=== PATIENT | female | born 1950 | race Caucasian/White ===

== ENCOUNTER 2016-09-09 10:44 | Inpatient (IN) | payer OTHER ==
[2016-08-23 09:58] VITALS: BMI 56.0
--- NOTE | 2016-08-23 10:29 | PAT Medication Instructions ---
Service Date Aug 23, 2016. Current Home Medication List Acetaminophen Tab (Tylenol), 650 MG PO QAM Cholecalciferol (Vitamin D3), 1 TAB PO QPM Meloxicam (Mobic), 7.5 MG PO QAM Warfarin Sod (Jantoven), 5-7.7 MG PO QPM [Folic Acid ], 800 MCG PO QPM Medication Instructions For Your Scheduled Surgery - Instructions per coumadin clinic: Warfarin Sod (Jantoven), 5-7.7 MG PO QPM *to bridge with Lovenox* - Hold the following medications 5 days prior to surgery per surgeon's instructions: Meloxicam (Mobic), 7.5 MG PO QAM Cholecalciferol (Vitamin D3), 1 TAB PO QPM [Folic Acid ], 800 MCG PO QPM - Take the following medications the morning of surgery with a sip of water OTHERWISE NOTHING TO EAT OR DRINK AFTER MIDNIGHT: Acetaminophen Tab (Tylenol), 650 MG PO QAM (MAY TAKE IF NEEDED UP TO 4 HOURS PRIOR TO SURGERY) If you have any questions please call us at [phone] or [phone] or [phone]
[2016-08-23 10:39] LABS: URINE APPEARANCE CLEAR (CLEAR); URINE BILIRUBIN NEG (NEG); URINE COLOR YELLOW; URINE NITRITE NEG (NEG); UROBILINOGEN NEG (NEG)
[2016-08-23 10:41] LABS: MANUAL MICROSCOPIC REQUIRED? NO; REVIEW REQ? NO
--- NOTE | 2016-08-23 11:06 | DIAGNOSTIC IMAGING REPORT ---
CHEST PREADMISSION(PA/LAT) CLINICAL HISTORY: Preoperative chest COMPARISON STUDY: No previous studies for comparison. FINDINGS: The cardiac and mediastinal contours are normal. There is no evidence of focal pulmonary consolidation. There is no evidence of failure. No pleural effusions are visualized.[ There is calcified left lower lobe granuloma. IMPRESSION: No active disease in the chest. Electronically signed by: Faustino Robins M.D. 08/23/2016 11:04 AM Dictated Date/Time: 08/23/2016 11:03 AM
[2016-08-23 11:12] LABS: BASO % 0.8 %; BASO ABS # 0.05 K/uL (0-0.2); COMPLETE YES; EOS % 1.7 %; HEMATOCRIT 40.9 % (37-47); IG% 0.2 %; LYMPH % 36.7 %; LYMPH ABS # 2.43 K/uL (1.2-3.4); MEAN CELL VOLUME 88.9 fL (80-100); MEAN CORPUSCULAR HEMOGLOBIN 29.6 pg (25-34); MEAN CORPUSCULAR HGB CONC 33.3 g/dl (32-36); MEAN PLATELET VOLUME 10.2 fL (7.4-10.4); MONO % 3.8 %; NEUT % 56.8 %; PLATELET COUNT 248 K/uL (130-400); WHITE BLOOD COUNT 6.62 K/uL (4.8-10.8)
[2016-08-23 11:24] LABS: INR 1.5 (0.9-1.1); PARTIAL THROMBOPLASTIN RATIO 1.3; PROTHROMBIN TIME (PATIENT) 16.7 SECONDS (9.0-12.0)
[2016-08-23 13:20] LABS: CALCIUM 8.9 mg/dl (8.5-10.1); CREATININE 0.69 mg/dl (0.60-1.20); POTASSIUM 4.3 mmol/L (3.5-5.1)
--- NOTE | 2016-09-08 12:41 | HISTORY & PHYSICAL EXAMINATION ---
DATE OF ADMISSION: 09/09/2016 CHIEF COMPLAINT: Primary osteoarthritis of the right hip. HISTORY OF PRESENT ILLNESS: Edna is a pleasant 66-year-old female who has been dealing with chronic right groin pain. X-rays and clinical examination have been diagnostic for primary osteoarthritis of the right hip. After failing extensive conservative treatment, she has elected to proceed with a right total hip arthroplasty. She does have a BMI of 56, she understands her size and the increased complication rate with the procedure and still would like to proceed. PAST MEDICAL HISTORY: Significant for blood clots and melanoma on her nose. PAST SURGICAL HISTORY: None. ALLERGIES: None. MEDICATIONS: Include vitamin D3 1000 units daily, Mobic 7.5 mg for pain and Coumadin 5-7.5 mg at night for history of blood clots. FAMILY HISTORY: Noncontributory. SOCIAL HISTORY: She is . Rarely drinks. Denies use of tobacco or IV drug use. She has little activity and has 2 kids. REVIEW OF SYSTEMS: She complains of right hip pain. All other pertinent review of systems is negative. PHYSICAL EXAMINATION: GENERAL: She is awake, alert and oriented x3. She is in no apparent distress. She is very pleasant. HEENT: Pupils are equal, round and reactive to light. Extraocular motions intact. Oral mucosa is pink and moist. HEART: Regular rate per radial pulse. LUNGS: Ginger symmetrically bilaterally with no audible breath sounds. ABDOMEN: Soft, nontender, nondistended. MUSCULOSKELETAL: On physical examination of the right hip, she ambulates with a slight limp. She does have reproducible groin pain with internal and external rotation of her hip. No tenderness to palpation over the greater trochanteric bursa. No back pain. She is neurovascularly intact. IMAGING: X-rays of the hip do show advanced osteoarthritis of the right hip joint. IMPRESSION: Primary osteoarthritis of the right hip. PLAN: Will proceed with a Biomet taper lock right total hip arthroplasty. Postoperatively, she will be discharged to general orthopedic floors and kept 2 midnights for postoperative medical management. She will be started back on Coumadin for DVT prophylaxis and she will likely go to a rehab because she lives alone.
[2016-09-09] VITALS (7 sets, daily range): BP systolic 100–141; BP diastolic 64–80; PULSE 74–84; TEMP 36.3–36.9; O2SAT 94–100; Ht 162.6 cm; Wt 148.0 kg
[~2016-09-09] VITALS: Ht 162.6 cm; Wt 148.0 kg
[~2016-09-09 10:44] MED LIST: ACET325T96 PO; ACETAMINOPHEN 500 MG TAB PO SCH; BUPIVACAINE 0.5 % 5 MG/1 ML PF 10ML VIAL ONE; CEFAZOLIN 3000 MG/65 ML D5W 65 ML IV SCH; CHOL1000 PO; FAMOTIDINE 20 MG TAB PO SCH; FOLIC ACID PO; LACTATED RINGER'S 1000ML 1,000 ML IV SCH; LACTATED RINGER'S 1000ML IV SCH; LACTATED RINGER'S 500 ML IV SCH; MELO7.5T5 PO; ROPIVACAINE 5MG/ML 30 ML 150 MG, BUPIVACAINE/EPINEPHR 0.5% MPF 30 ML, KETOROLAC TROMETH... INFIL SCH; WARF5TAB7 PO
[2016-09-09] MEDS ORDERED: MIDAZOLAM HCL 1 MG/ML 2ML VIAL ONE (11:28)
[2016-09-09] MEDS ORDERED: FENTANYL CITRATE INJ 50 MCG/1 ML 2 ML VIAL ONE (11:28)
[2016-09-09] MEDS ORDERED: ENOX120I SQ (11:45)
[2016-09-09] MEDS ORDERED: LACTATED RINGER'S 1000ML 1,000 ML IV PRN (12:41)
[2016-09-09] MEDS ORDERED: FENTANYL CITRATE INJ 50 MCG/1 ML 2 ML VIAL IV PRN (12:45)
[2016-09-09] MEDS ORDERED: ONDANSETRON INJ 2 MG/ML 2 ML VIAL IV PRN ×2 (12:45→16:00)
--- NOTE | 2016-09-09 12:58 | History & Physical Bridge Note ---
H&P Re-Evaluation Bridge Note: I have examined the patient, reviewed the History & Physical and in the interval since the performance of the History & Physical I have noted the following changes of clinical significance: No changes noted
[2016-09-09] MEDS ORDERED: BACITRACIN 50000 UNIT VIAL ONE (13:20)
[2016-09-09] MEDS ORDERED: ORTHO JOINT ANESTHETIC ONE (13:20)
[2016-09-09] MEDS ORDERED: PROPOFOL IV EMULSION 10 MG/ML 20 ML VIAL IV ONE (13:43)
[2016-09-09] MEDS ORDERED: PHENYLEPHRINE 100MCG/ML 5ML SYR ONE (13:52)
[2016-09-09] MEDS ORDERED: EpHEDrine SULFATE 50MG/5ML SYR ONE (13:52)
--- NOTE | 2016-09-09 15:04 | DIAGNOSTIC IMAGING REPORT ---
RIGHT HIP UNILATERAL 1 VIEW CLINICAL HISTORY: RT XTL IN OR Right hip replacement COMPARISON: None. DISCUSSION: Single image intensifier images of the right hip was obtained intraoperatively. This images used for intraoperative surgical assistance. IMPRESSION: Right hip replacement Electronically signed by: James Borden M.D. 09/09/2016 3:02 PM Dictated Date/Time: 09/09/2016 3:01 PM
--- NOTE | 2016-09-09 15:52 | [facility] Post Operative Brief Note ---
Immediate Operative Summary Operative Date September 09, 2016. Pre-Operative Diagnosis Primary osteoarthritis of the right hip Post-Operative Diagnosis Primary osteoarthritis of the right hip Procedure(s) Performed Right total hip arthroplasty Surgeon Dr. Papa Fernando Slubber Hand Surgeon(s) Rodney Zazueta PA-C Estimated Blood Loss 350ML Findings as above Specimens A. Right Femoral Head Complication(s) None Disposition Recovery Room / PACU
[2016-09-09] MEDS ORDERED: SILVER SULFADIAZINE 1% CR 50 GM JAR EXT PRN (16:00)
[2016-09-09] MEDS ORDERED: BISACODYL 10 MG SUPP PR PRN (16:00)
[2016-09-09] MEDS ORDERED: METOCLOPRAMIDE HCL INJ 5 MG/ML 2 ML VIAL IV PRN (16:00)
[2016-09-09] MEDS ORDERED: SOD PHOSPHATE/SOD BIPHOSPHATE ENEMA 132 ML BTL PR PRN (16:00)
[2016-09-09] MEDS ORDERED: MAGNESIUM HYDROXIDE SUSP 30 ML UDC PO PRN (16:00)
[2016-09-09] MEDS ORDERED: MoRPHine SULFATE 2 MG/ML CARP IV PRN (16:00)
--- NOTE | 2016-09-09 16:17 | DIAGNOSTIC IMAGING REPORT ---
RIGHT PELVIS/UNILATERAL HIP 1 VIEW CLINICAL HISTORY: Postoperative evaluation. COMPARISON: Pelvis and right hip radiographs August 09, 2016. FINDINGS: Alignment of the total right hip arthroplasty is anatomic. There is no fracture or unexpected radiopaque foreign body. Acetabular screw is in place. There is a surgical drain. IMPRESSION: Expected findings following total right hip arthroplasty. Electronically signed by: Zi Magaña M.D. 09/09/2016 4:16 PM Dictated Date/Time: 09/09/2016 4:14 PM
--- NOTE | 2016-09-09 16:34 | Anesthesiology Progress Note ---
Anesthesia Post Op Note Date & Time September 09, 2016 at 16:34 Vital Signs Pain Intensity: 0 Vital Signs Past 12 Hours Date Time Temp Pulse Resp B/P Pulse Ox O2 Delivery O2 Flow Rate FiO2 09/09/16 16:30 72 12 126/68 98 Nasal Cannula 2 09/09/16 16:20 70 12 127/75 99 Nasal Cannula 2 09/09/16 16:10 67 19 119/72 100 Nasal Cannula 2 09/09/16 16:00 68 16 139/68 99 Nasal Cannula 2 09/09/16 15:50 36.1 73 20 122/77 97 Nasal Cannula 2 09/09/16 11:14 36.5 74 20 141/75 97 Room Air Notes Mental Status: alert / awake / arousable, participated in evaluation Pt Amnestic to Procedure: Yes Nausea / Vomiting: adequately controlled Pain: adequately controlled Airway Patency, RR, SpO2: stable & adequate BP & HR: stable & adequate Hydration State: stable & adequate Neuraxial Anesthesia: was administered, sensory block is resolving Anesthetic Complications: no major complications apparent
--- NOTE | 2016-09-09 18:18 | OPERATIVE REPORT ---
DATE OF OPERATION: 09/09/2016 PREOPERATIVE DIAGNOSIS: Primary osteoarthritis of the right hip with morbid obesity and a BMI 56. POSTOPERATIVE DIAGNOSIS: Same. PROCEDURE: Right total hip arthroplasty. SURGEON: Papa Fernando DO TIER LIFT OPERATOR: Loco Zazueta PA-C, whose assistance was necessary for retraction and helping dislocate the hip. ANESTHESIA: Spinal with sedation. COMPLICATIONS: None. CONDITION: Stable to PACU. IMPLANTS USED: I used a Biomet Taperloc total hip arthroplasty with a size 50-mm G7 cup and a single 30-mm screw, a neutral highly cross-linked liner, a size 11 press-fit standard Taperloc stem and a 36-mm standard ceramic femoral head. No cement was used during the case. This case was increased difficulty and took greater than 50% increase in time due to the patient's size. She has a BMI of 56 and most of her weight is located at the area of her hips. It took special retractors for exposure and a larger incision and dissection time than usual. INDICATIONS: Edna is a pleasant 66-year-old female who presented to my office with chronic right hip pain. X-rays and clinical examination were diagnostic for primary osteoarthritis of the right hip. After failing extensive conservative treatment, she elected to undergo a right total hip arthroplasty. OPERATION AND FINDINGS: On 09/09/2014, she arrived at [facility] for the above procedure. She was seen in the preoperative holding area and the operative extremity was identified and signed. She was given a preoperative antibiotic and taken back to the operating room, laid on the table in supine position and given basic sedation. She was then put in the lateral decubitus position. The right hip was then prepped and draped in sterile fashion. Time-out was done and the patient and operative extremity was properly identified. An anterolateral approach was used. Dissection was taken down through the fat layer to the tensor. The tensor was incised. The abductors were exposed and the anterior third of the abductors were tenotomized off the greater trochanter. The capsule was then excised and the hip was dislocated. The femoral neck was then resected and the femoral head was removed. The acetabulum was then exposed. Time was spent doing a complete circumferential capsular and labral release. Sequential reaming of the acetabulum up to a size 49 reamer was done. A 50-mm G7 cup was then impacted into place and a 30-mm screw was placed. The highly cross-linked was then snapped into place. The proximal femur was then exposed. Sequential broaching up to a size 11 broach was done. A standard head and neck assembly was applied. The hip was reduced, brought through a full range of motion and felt to be stable. A single flat plate x-ray was then taken and I was happy with the size and alignment of the components. The hip was then dislocated and the final size 11 stem was impacted into place, and the 36-mm ceramic head was impacted on the stem. The hip was reduced, brought through a full range of motion and felt to be stable. The hip was then irrigated, surrounding soft tissues were then injected with 100 mL of an orthopedic pain control cocktail. The abductors were then tenodesed back to the greater trochanter with transosseous FiberWire sutures and [id number] sutures. Two drains were placed, one in the deep layer and one superficial to the IT band. The IT band was closed with #1 Vicryl suture. Deep fat layer sutures were placed and the skin was closed with 2-0 Vicryl and sanket. She was placed in a soft dressing and taken to the postanesthesia care unit in stable condition. She tolerated the procedure well. I attest to the content of the Intraoperative Record and any orders documented therein. Any exceptio ns are noted below.
[2016-09-09] MEDS: SODIUM CHLORIDE 0.9% 1000ML 1,000 ML IV SCH (19:06)
[2016-09-09] MEDS: KETOROLAC TROMETHAMINE 30 MG/ML VIAL IV. SCH (19:06)
[2016-09-09 21:26] LABS: PROTHROMBIN TIME (PATIENT) 10.7 SECONDS (9.0-12.0)
[2016-09-09] MEDS: CEFAZOLIN IV 3,000 MG in DEXTROSE 5% 50ML 50 ML IV SCH (21:34)
[2016-09-09] MEDS: CHOLECALCIFEROL 1000 INTER.UNIT TAB PO SCH (21:35)
[2016-09-09] MEDS: SENNA 8.6 MG TAB PO SCH (21:35)
[2016-09-09] MEDS: FoLIC ACID TAB 400 MCG TAB PO SCH (21:35)
[2016-09-09] MEDS: DOCUSATE SODIUM 100 MG CAP PO SCH (21:35)
[2016-09-09] MEDS: ACETAMINOPHEN IV 1,000 MG in EMPTY BAG 0 ML IV SCH (21:36)
[2016-09-09] MEDS ORDERED: WARFARIN SOD 5 MG TAB PO SCH (22:00)
[2016-09-10] MEDS: KETOROLAC TROMETHAMINE 30 MG/ML VIAL IV. SCH ×5 (00:33→23:56)
[2016-09-10] MEDS: CEFAZOLIN IV 3,000 MG in DEXTROSE 5% 50ML 50 ML IV SCH (03:48)
[2016-09-10] MEDS: SODIUM CHLORIDE 0.9% 1000ML 1,000 ML IV SCH ×2 (03:48→11:53)
[2016-09-10 03:58] VITALS: BP 135/75; PULSE 73; TEMP 36.8; O2SAT 95
[2016-09-10] MEDS: ENOXAPARIN 30 MG/0.3 ML SYR SQ SCH ×2 (06:39→18:48)
[2016-09-10] MEDS: ACETAMINOPHEN IV 1,000 MG in EMPTY BAG 0 ML IV SCH ×2 (06:39→13:36)
[2016-09-10 07:26] LABS: BASO % 0.3 %; BASO ABS # 0.03 K/uL (0-0.2); COMPLETE YES; EOS % 0.4 %; HEMATOCRIT 37.4 % (37-47); IG% 0.2 %; LYMPH % 21.3 %; LYMPH ABS # 1.89 K/uL (1.2-3.4); MEAN CELL VOLUME 88.8 fL (80-100); MEAN CORPUSCULAR HEMOGLOBIN 28.3 pg (25-34); MEAN CORPUSCULAR HGB CONC 31.8 g/dl (32-36); MEAN PLATELET VOLUME 10.3 fL (7.4-10.4); MONO % 5.1 %; NEUT % 72.7 %; PLATELET COUNT 213 K/uL (130-400); RED BLOOD COUNT 4.21 M/uL (4.2-5.4); WHITE BLOOD COUNT 8.89 K/uL (4.8-10.8)
[2016-09-10 07:34] LABS: PROTHROMBIN TIME (PATIENT) 10.6 SECONDS (9.0-12.0)
[2016-09-10 07:44] VITALS: BP 122/77; PULSE 75; TEMP 36.6; O2SAT 95
[2016-09-10 07:50] LABS: BUN/CREATININE RATIO 20.6 (10-20); CALCIUM 8.4 mg/dl (8.5-10.1); CREATININE 0.67 mg/dl (0.60-1.20); POTASSIUM 3.8 mmol/L (3.5-5.1)
[2016-09-10] MEDS: MULTIVITAMIN TAB PO SCH (08:41)
[2016-09-10] MEDS: DOCUSATE SODIUM 100 MG CAP PO SCH ×2 (08:41→19:10)
[2016-09-10] MEDS: PANTOprazole SOD 40 MG TAB PO SCH (08:41)
--- NOTE | 2016-09-10 09:18 | PROGRESS NOTE ---
DATE: 09/10/2016 DATE: 09/10/2016. CHIEF COMPLAINT: Status post right total hip arthroplasty postop day #1. PROGRESS: Edna was seen and examined at bedside today. Overall, she is doing very well. She said she really has no pain in her hip. She has been up and ambulating to the bathroom. She did have an episode where she became lightheaded after sitting up on the edge of the bed this morning, but she feels better now. She has no other complaints. PHYSICAL EXAMINATION: RIGHT HIP: The dressing is clean and dry and the drain is to suction. She has active dorsiflexion and plantarflexion of her right ankle. Sensation is intact. LABORATORY DATA: She has an H\T\H today of 11.9 and 37.4. Her glucose is 105. VITAL SIGNS: All stable on room air. She is voiding on her own and her Hemovac put out 250 this morning. X-rays postoperatively of the right hip show the prosthesis to be anatomical alignment with appropriate leg lengths. No evidence of fracture, dislocation or loosening. IMPRESSION: Status post right total hip arthroplasty postop day #1. PLAN: At this point, she is doing very well. She will be up and ambulating today with physical therapy. Tomorrow the nursing staff can change the dressing and pull the drain. We will likely discharge her to rehab on Monday.
[2016-09-10 11:40] VITALS: BP 133/83; PULSE 83; TEMP 36.6; O2SAT 96
[2016-09-10 15:51] VITALS: BP 118/79; PULSE 76; TEMP 36.9; O2SAT 95
[2016-09-10] MEDS ORDERED: WARFARIN SOD 5 MG TAB PO SCH (16:00)
[2016-09-10] MEDS: SENNA 8.6 MG TAB PO SCH (19:10)
[2016-09-10] MEDS: ACETAMINOPHEN 500 MG TAB PO SCH (20:58)
[2016-09-10] MEDS: CHOLECALCIFEROL 1000 INTER.UNIT TAB PO SCH (20:58)
[2016-09-10] MEDS: FoLIC ACID TAB 400 MCG TAB PO SCH (20:58)
[2016-09-10 22:35] VITALS: BP 115/67; PULSE 77; TEMP 36.8; O2SAT 94
[2016-09-11] MEDS: KETOROLAC TROMETHAMINE 30 MG/ML VIAL IV. SCH ×2 (05:35→12:38)
[2016-09-11] MEDS: ACETAMINOPHEN 500 MG TAB PO SCH ×3 (05:35→22:22)
[2016-09-11] MEDS: ENOXAPARIN 30 MG/0.3 ML SYR SQ SCH ×2 (06:14→19:18)
[2016-09-11 06:38] VITALS: BP 109/68; PULSE 75; TEMP 36.6; O2SAT 95
[2016-09-11] MEDS: DOCUSATE SODIUM 100 MG CAP PO SCH ×2 (07:34→20:30)
[2016-09-11] MEDS: MULTIVITAMIN TAB PO SCH (07:34)
[2016-09-11] MEDS: PANTOprazole SOD 40 MG TAB PO SCH (07:34)
[2016-09-11] MEDS ORDERED: RXC5 PO (09:05)
--- NOTE | 2016-09-11 09:07 | Discharge Instructions ---
Discharge Instructions Date of Service September 11, 2016. Admission Reason for Admission: Right Hip Degenerative Joint Disease Discharge Discharge Diagnosis / Problem: Right Total Hip Discharge Goals Goal(s): Decrease discomfort, Improve function Activity Recommendations Activity Limitations: as noted below . Instructions / Follow-Up Instructions / Follow-Up Activity and Therapy Recommendations: * If you are using [facility] then Physical Therapy will be provided until they feel you are ready to start Outpatient Physical Therapy. If you are not using a Home Health agency then Outpatient Physical Therapy should start about 3-5 days from your day of surgery. Therapy will last about 3-6 weeks * You were shown a series of exercises in the hospital. Do these exercises three times each day including the exercises you were shown in physical therapy. * Get up and walk several times each day.~ For the first four weeks, try not to stand or walk for more than one hour at a time. If you do stand or walk for more than one hour, you will not hurt anything, but your leg will likely swell.~ ~ * As you feel comfortable, you may change from the walker or crutches to a cane and~then to independent walking. Medications: * Narcotic You will likely be sent home from the hospital with a prescription for the narcotic pain medication that worked best throughout your stay. * Continue coumadin * Other medications may be prescribed for specific circumstances. If you have any questions, please call the office at . * Resume previous home medications unless otherwise instructed TEDs/Elastic Stockings: The white elastic stockings help limit swelling and prevent blood clots from forming in your legs. The more you wear them, the more they work. Wear them for six weeks. Showering: You may shower 5 days from the day of surgery. Let the soapy shower water run over the sanket. Do not scrub or soak the incision. Things To Watch For: * Drainage from the incision site that occurs more than one week after your surgery. * Increased redness at the incision site. * Fever above 102 degrees Fahrenheit. * Unusual chest pain or shortness of breath. * Call [facility] at with any of the above problems Follow-Up Visit: Follow-up with Dr. Fernando 2-3 weeks after your day of surgery. An appointment was probably scheduled when you signed-up for surgery in the office. If you have any questions call Office Instructions: More detailed instructions as well as Frequently Asked Questions were provided in a folder by our office when you signed-up for surgery. Please review these instructions when you get home. If you have any further questions or concerns, please feel free to call the office at [phone] Current Hospital Diet Patient's current hospital diet: Regular Diet Discharge Diet Recommended Diet: Regular Diet Procedures Procedures Performed: Right total hip arthroplasty Pending Studies Studies pending at discharge: no Medical Emergencies . Who to Call and When: Medical Emergencies: If at any time you feel your situation is an emergency, please call 911 immediately. . Non-Emergent Contact Non-Emergency issues call your: Surgeon . "Provider Documentation" section prepared by Papa Fernando. . VTE Core Measure Inpt VTE Proph given/why not?: Warfarin (Coumadin)
--- NOTE | 2016-09-11 10:34 | PROGRESS NOTE ---
DATE: 09/11/2016 CHIEF COMPLAINT: Status post right total hip arthroplasty postop day #2. HISTORY OF PRESENT ILLNESS: Edna was seen and examined at bedside today. Overall, she is doing very well. She says she has very little pain or soreness in the hip. She has been ambulating well with physical therapy. She has no complaints. PHYSICAL EXAMINATION: LEFT HIP: The dressing has been changed and drain has been pulled. There is no ecchymosis or signs of drainage. She is neurovascularly intact. IMPRESSION: Status post right total hip arthroplasty postop day #2. PLAN: At this point, she is doing well. We will continue physical therapy throughout the day today. She is currently bridging with Lovenox 30 mg twice a day and she has resumed her Coumadin. She will likely get her last dose of Lovenox tomorrow morning and she is planning to be discharged to a rehab facility. She can resume her Coumadin when she is at a rehab facility.
[2016-09-11 13:24] LABS: INR 1.1 (0.9-1.1); PROTHROMBIN TIME (PATIENT) 11.4 SECONDS (9.0-12.0)
[2016-09-11 15:37] VITALS: BP 110/74; PULSE 80; TEMP 36.5; O2SAT 94
[2016-09-11] MEDS ORDERED: WARFARIN SOD 6 MG TAB PO SCH (16:00)
[2016-09-11] MEDS: CHOLECALCIFEROL 1000 INTER.UNIT TAB PO SCH (20:30)
[2016-09-11] MEDS: SENNA 8.6 MG TAB PO SCH (20:30)
[2016-09-11] MEDS: FoLIC ACID TAB 400 MCG TAB PO SCH (20:30)
[2016-09-11 23:20] VITALS: BP 105/68; PULSE 83; TEMP 37.1; O2SAT 96
[2016-09-12] MEDS: ENOXAPARIN 30 MG/0.3 ML SYR SQ SCH ×2 (05:44→18:57)
[2016-09-12] MEDS: ACETAMINOPHEN 500 MG TAB PO SCH ×3 (05:44→21:14)
[2016-09-12 05:51] LABS: HEMATOCRIT 33.6 % (37-47); MEAN CELL VOLUME 89.4 fL (80-100); MEAN CORPUSCULAR HEMOGLOBIN 29.3 pg (25-34); MEAN CORPUSCULAR HGB CONC 32.7 g/dl (32-36); MEAN PLATELET VOLUME 10.1 fL (7.4-10.4); PLATELET COUNT 174 K/uL (130-400); RED BLOOD COUNT 3.76 M/uL (4.2-5.4); WHITE BLOOD COUNT 6.81 K/uL (4.8-10.8)
[2016-09-12 06:14] LABS: CREATININE 0.6 mg/dl (0.60-1.20)
[2016-09-12 06:49] VITALS: BP_SYST 77; PULSE 77; TEMP 36.9; O2SAT 96
[2016-09-12] MEDS: PANTOprazole SOD 40 MG TAB PO SCH (06:50)
[2016-09-12] MEDS: DOCUSATE SODIUM 100 MG CAP PO SCH ×2 (07:19→21:13)
[2016-09-12] MEDS: MULTIVITAMIN TAB PO SCH (07:19)
[2016-09-12 08:23] VITALS: BP 131/84; PULSE 91
[2016-09-12 08:24] LABS: INR 1.1 (0.9-1.1); PROTHROMBIN TIME (PATIENT) 11.6 SECONDS (9.0-12.0)
--- NOTE | 2016-09-12 08:30 | Anesthesiology Progress Note ---
Anesthesia Post Op Note Date & Time September 12, 2016 at 08:29 Vital Signs Pain Intensity: 0.0 Vital Signs Past 12 Hours Date Time Temp Pulse Resp B/P Pulse Ox O2 Delivery O2 Flow Rate FiO2 09/12/16 08:05 Room Air 09/12/16 06:49 36.9 77 16 77/ 96 Room Air 09/12/16 00:00 Room Air 09/11/16 23:20 37.1 83 16 105/68 96 Room Air Notes Mental Status: alert / awake / arousable, participated in evaluation Pt Amnestic to Procedure: Yes Nausea / Vomiting: adequately controlled Pain: adequately controlled Airway Patency, RR, SpO2: stable & adequate BP & HR: stable & adequate Hydration State: stable & adequate Neuraxial Anesthesia: sensory block resolved Anesthetic Complications: no major complications apparent
[2016-09-12] MEDS: OXYCODONE HCL IR 5 MG TAB (IMMEDIATE RELEASE) PO PRN (13:45)
[2016-09-12 14:23] VITALS: BP 128/84
[2016-09-12 15:41] VITALS: BP 139/75; PULSE 85; TEMP 36.6; O2SAT 98
[2016-09-12 16:00] VITALS: O2SAT 98
[2016-09-12] MEDS ORDERED: WARFARIN PO ONE ×2 (16:00)
[2016-09-12] MEDS: CHOLECALCIFEROL 1000 INTER.UNIT TAB PO SCH (21:13)
[2016-09-12] MEDS: SENNA 8.6 MG TAB PO SCH (21:13)
[2016-09-12] MEDS: FoLIC ACID TAB 400 MCG TAB PO SCH (21:14)
[2016-09-12 23:08] VITALS: BP 116/71; PULSE 84; TEMP 37; O2SAT 97
[2016-09-13] MEDS: OXYCODONE HCL IR 5 MG TAB (IMMEDIATE RELEASE) PO PRN ×2 (04:13→13:51)
[2016-09-13] MEDS: ENOXAPARIN 30 MG/0.3 ML SYR SQ SCH (05:28)
[2016-09-13] MEDS: ACETAMINOPHEN 500 MG TAB PO SCH ×2 (05:29→13:52)
[2016-09-13 07:09] VITALS: BP 126/68; PULSE 77; TEMP 37; O2SAT 95
[2016-09-13] MEDS: PANTOprazole SOD 40 MG TAB PO SCH (08:32)
[2016-09-13] MEDS: MULTIVITAMIN TAB PO SCH (08:32)
[2016-09-13] MEDS: DOCUSATE SODIUM 100 MG CAP PO SCH (08:32)
--- NOTE | 2016-09-19 22:04 | DISCHARGE SUMMARY ---
DISCHARGE DIAGNOSIS: Primary osteoarthritis of the right hip. PROCEDURE: Right total hip arthroplasty on 09/09/[address] Papa Fernando. DISCHARGE INSTRUCTIONS: 1. Oxycodone 5-10 mg every 4 hours as needed for pain. 2. Coumadin 5-7.5 mg daily. 3. Mobic 7.5 mg daily. 4. Vitamin D3 1000 units daily. 5. Tylenol as needed for pain. 6. Weightbear as tolerated. 7. Follow hip precautions for 3 months. 8. Follow up with Dr. Fernando in 2 weeks. 9. Call the office of Dr. Fernando with any questions or concerns. HOSPITAL COURSE: Edna is a pleasant 66-year-old female, who presented to my office with chronic right groin pain. X-rays and clinical examination were diagnostic for primary osteoarthritis of the right hip. After failing conservative treatment, she elected to undergo a right total hip arthroplasty. On 09/09/2016, she arrived at [facility] and underwent a right hip replacement without complications. She had a spinal anesthetic. Postoperatively, she was discharged to general orthopedic floor. Her hospital course was uneventful. On postop day #1, her H\T\H was stable at 11.0 and 33.6. She was able to ambulate well with physical therapy. She was not having much pain. On postop day #2, she continued to do fairly well, the dressing was changed, the drain was pulled and she was continuing to work well with physical therapy. She had elected to go to a rehabilitation facility. On postop day #3, she was doing well. She was participating well with physical therapy and her pain was controlled. She was subsequently discharged to rehab with the above instructions.
== END 2016-09-13 14:15 | DRG 470 ==
LOC: ENRESERVTM → ENRESERVDT → C.ACU 10:44 → C.3E 13:00
PROVIDERS: ADMIT Orthopaedic Surgery; ATTEND Orthopaedic Surgery
PROC: 0SR904A Replacement of Right Hip Joint with Ceramic on Polyethylene Synthetic Substitute, Uncemented, Open Approach (ICD-10-PCS; principal; 2016-09-09 13:30)
DX: M16.11 Unilateral primary osteoarthritis, right hip (principal); Z68.43 Body mass index [BMI] 50.0-59.9, adult; E66.01 Morbid (severe) obesity due to excess calories; Z79.01 Long term (current) use of anticoagulants; Z79.1 Long term (current) use of non-steroidal anti-inflammatories (NSAID); Z79.899 Other long term (current) drug therapy; Z86.718 Personal history of other venous thrombosis and embolism; Z85.820 Personal history of malignant melanoma of skin